=== PATIENT | female | born 1935 | race African-American/Black ===

== ENCOUNTER 2019-01-09 14:21 | Emergency (ER) | payer OTHER ==
[~2019-01-09] VITALS: Ht 157.5 cm; Wt 68.0 kg
[2019-01-09] MEDS ORDERED: CALTRATE 600+D1 EAC1 (14:58)
[2019-01-09] MEDS ORDERED: CARDURA1 MG (14:59)
[2019-01-09] MEDS ORDERED: INTEGRA PLUS C1 EACH (14:59)
[2019-01-09] MEDS ORDERED: FOSAMAX70 MG (15:00)
[2019-01-09] MEDS ORDERED: VITAMINA B12 (15:00)
[2019-01-09] MEDS ORDERED: ZOCOR20 MG (15:01)
== END 2019-01-09 17:09 | disposition home or self-care (01) ==
LOC: ER 14:21
DX: M54.89 Other dorsalgia (principal)

== ENCOUNTER 2019-08-26 11:29 | Inpatient (IN) | payer OTHER ==
[~2019-08-26] VITALS: Ht 157.5 cm; Wt 68.0 kg
[~2019-08-26 11:29] MED LIST: CALTRATE 600+D1 EAC1; CARDURA1 MG; FOSAMAX70 MG; INTEGRA PLUS C1 EACH; VITAMINA B12; ZOCOR20 MG
--- NOTE | 2019-08-26 12:01 | NUR ---
PTE REFERIDO POPR DR HARRIS POR HEMOGLOBINA BAJA SE WARREN S/V YSE UBIAC EN AREA DE OBSERVACIOB
== END 2019-08-28 15:24 | disposition home or self-care (01) | DRG 683 ==
LOC: ER 11:29 → SURH 16:08 → SEC-K 16:08 → SURH 18:32
PROVIDERS: ADMIT Specialist
PROC: BW21ZZZ Computerized Tomography (CT Scan) of Abdomen and Pelvis (ICD-10-PCS; principal; 2019-08-28)
DX: I12.9 Hypertensive chronic kidney disease with stage 1 through stage 4 chronic kidney disease, or unspecified chronic kidney disease (principal); N17.8 Other acute kidney failure; N18.3 Chronic kidney disease, stage 3 (moderate); D63.1 Anemia in chronic kidney disease; K57.30 Diverticulosis of large intestine without perforation or abscess without bleeding; E86.0 Dehydration; E87.8 Other disorders of electrolyte and fluid balance, not elsewhere classified; K44.9 Diaphragmatic hernia without obstruction or gangrene

== ENCOUNTER 2020-03-17 08:29 | Outpatient (CLI) | payer OTHER | END 2020-03-17 08:38 | disposition home or self-care (01) | LOC: RX STUDY 08:29 | DX: R13.19 Other dysphagia (principal) ==

== ENCOUNTER 2023-06-16 15:38 | Emergency (ER) | payer OTHER ==
[~2023-06-16] VITALS: Ht 157.5 cm; Wt 71.2 kg
[2023-06-16] MEDS ORDERED: ALENDRONATE SOD70 MG (16:28)
[2023-06-16] MEDS ORDERED: EZETIMIBE10 MG (16:29)
[2023-06-16] MEDS ORDERED: AMLODIPINE-OLM1 EAC3 (16:30)
[2023-06-16] MEDS ORDERED: FOLIC ACID1 MG (16:30)
[2023-06-16] MEDS ORDERED: FERROUS SULFAT325 MG (16:30)
[2023-06-16] MEDS ORDERED: CANDESARTAN CIL32 MG (16:31)
== END 2023-06-16 19:48 | disposition home or self-care (01) ==
LOC: ER 15:38
DX: R00.2 Palpitations (principal); I10 Essential (primary) hypertension

== ENCOUNTER → 2024-08-01 07:24 | Outpatient (CLI) | payer OTHER ==
[~2024-08-01 07:24] MED LIST changes: +ALENDRONATE SOD70 MG; +AMLODIPINE-OLM1 EAC3; +CANDESARTAN CIL32 MG; +EZETIMIBE10 MG; +FERROUS SULFAT325 MG; +FOLIC ACID1 MG
== END | disposition home or self-care (01) ==
LOC: NUCLEAR 07:00
PROVIDERS: ATTEND Internal Medicine
DX: I20.9 Angina pectoris, unspecified (principal)
CPT/HCPCS: 78452; 93017; A9500; J0153

== ENCOUNTER 2025-04-21 06:00 | Day surgery (SDC) | payer OTHER ==
[~2025-04-21 06:00] MED LIST changes: +ACIDOPHILUS1 EACH; +DOXAZOSIN 2 MG; +LEVOTHYROXINE25 MCG; +NORVASC10 MG
[2025-04-21] MEDS ORDERED: CEFAZOLIN SODIUM 1,000 MG VIAL ONE (09:11)
[2025-04-21] MEDS ORDERED: CEFAZOLIN SODIUM 1,000 MG VIAL IV ONE (10:15)
[2025-04-21] MEDS ORDERED: TRIAMCINOLONE ACETONIDE 40 MG/ML VIAL ONE (11:07)
[2025-04-21] MEDS ORDERED: MEPERIDINE HCL/PF 25 MG/ML VIAL IM STA (12:15)
[2025-04-21] MEDS ORDERED: PROMETHAZINE HCL 25 MG/ML AMPUL IM STA (12:16)
[2025-04-21] MEDS ORDERED: TRAMADOL HCL50 MG PO (12:21)
== END 2025-04-21 16:30 | disposition home or self-care (01) ==
LOC: CIR.AMB 06:00
PROVIDERS: ATTEND Orthopaedic Surgery
DX: S83.252A Bucket-handle tear of lateral meniscus, current injury, left knee, initial encounter (principal); M67.52 Plica syndrome, left knee; M22.42 Chondromalacia patellae, left knee; M17.12 Unilateral primary osteoarthritis, left knee; M67.862 Other specified disorders of synovium, left knee